=== PATIENT | male | born 1995 | race Caucasian/White ===

== ENCOUNTER 2017-05-14 22:01 | Emergency (ER) | payer BC ==
--- NOTE | ~2017-05-14 | CT17 ---
[facility] A Service of [facility] RADIOLOGY TEXT RESULTS PATIENT: ANA THAKKAR LOCATION: [facility] : [birth year] UNIT #: [id number] AGE: [address]: Nazario Pagan DO SEX: M ORDER DR: [id number] [facility] [address] [place], [place] [address] [id number] E MR#: [id number] Acc #: [id number] NAME: ANA THAKKAR : 1995 SEX: M STUDY DATE/TIME: UNIT: [facility] ROOM: STUDY DESCRIPTION: CT Angio Head Attending Physician: Nazario Pagan D.O. Ordering Physician: Nazario Pagan D.O. Primary Care Physician: No Primary Care Physician MEDICAL IMAGING REPORT This report is preliminary unless electronic signature is present EXAM Head neck CTA on 05/15/2017 at 02:03. INDICATIONS Severe right eye pain today with burning. TECHNIQUE Axial images were obtained through the head and neck following IV contrast administration. 3-D reformats were obtained. No comparison CTA. This CT exam was performed with one or more of the following radiation dose reduction techniques: automatic exposure control, adjustment of mA and/or kV according to patient size, and iterative reconstruction. FINDINGS Within the neck, the carotid and vertebral arteries are widely patent. No stenosis or dissection is seen. vertebral arteries are codominant. There is normal branching pattern from the arch. Intracranially, there is no flow-limiting stenosis by NASCET criteria. There is no vessel cutoff or vascular malformation. There is no aneurysm. Major dural venous sinuses are patent. No abnormal hint enhancement is seen. IMPRESSION Normal head and neck CT angiogram. No stenosis is seen by NASCET criteria. There is no plaque. No dissection in the neck. No intracranial aneurysm. Dictated by... Haja Mac Jr., M.D. THIS IS AN ELECTRONICALLY VERIFIED REPORT Haja Mac Jr., M.D. at 05/15/2017 7:22 PM RLK/gz [facility] A Service of [facility] RADIOLOGY TEXT RESULTS PATIENT: ANA THAKKAR LOCATION: [facility] : [birth year] UNIT #: [id number] AGE: [address]: Nazario Pagan DO SEX: M ORDER DR: TD: 05/15/2017 08:00 JOB #: [id number] MEDICAL IMAGING REPORT Page 1 of 1 COPY
--- NOTE | ~2017-05-14 | CT71 ---
[facility] A Service of [facility] RADIOLOGY TEXT RESULTS PATIENT: ANA THAKKAR LOCATION: [facility] : [birth year] UNIT #: [id number] AGE: [address]: Nazario Pagan DO SEX: M ORDER DR: [id number] [facility] [address] [place] [address] [place], [place] [address] [id number] E MR#: [id number] Acc #: [id number] NAME: ANA THAKKAR : 1995 SEX: M STUDY DATE/TIME: 05/15/2017 01:53 UNIT: [facility] ROOM: STUDY DESCRIPTION: CT Head Wo Contrast Attending Physician: Nazario Pagan D.O. Ordering Physician: Nazario Pagan D.O. Primary Care Physician: Primary Care Physician No MEDICAL IMAGING REPORT This report is preliminary unless electronic signature is present EXAM Head CT 05/15/2017 01:53 INDICATION Severe right eye pain that started today with burning. COMPARISON None. FINDINGS This CT examination was performed with one or more of the following radiation dose reduction techniques: automatic exposure control, adjustment of mA and/or kV according to patient size, and iterative reconstruction. Axial noncontrast images were obtained from the skull base to the vertex. Ventricular size and configuration are normal. There is no evidence of acute infarct or hemorrhage. There are no extra-axial fluid collections. No mass lesion or mass effect is seen. There are no skull fractures. IMPRESSION Normal noncontrast head CT. Dictated by... Haja Mac Jr., M.D. THIS IS AN ELECTRONICALLY VERIFIED REPORT Haja Mac Jr., M.D. at 05/15/2017 7:20 PM JAVIER/delicia TD: 05/15/2017 06:45 JOB #: [id number] [facility] A Service of [facility] RADIOLOGY TEXT RESULTS PATIENT: ANA THAKKAR LOCATION: [facility] : [birth year] UNIT #: [id number] AGE: [address]: Nazario Pagan DO SEX: M ORDER DR: MEDICAL IMAGING REPORT Page 1 of 1 COPY
[2017-05-15 01:40] LABS: BUN/CREATININE RATIO 18.57; CALCIUM SERUM 9.3 mg/dL (8.4-10.2); CREATININE SERUM 0.7 mg/dL (0.6-1.4); GLOM FILT RATE Estimated 136.9 mL/min (>60); POTASSIUM 3.6 mmol/L (3.5-5.1)
== END 2017-05-15 04:49 | disposition home or self-care (01) ==
LOC: CED 22:01
PROVIDERS: Emergency Medicine
DX: H57.11 Ocular pain, right eye (principal)
CPT/HCPCS: 70450; 70496; 70498; 80048; 99284; Q9967